=== PATIENT | male | born 2000 | race American Indian/Alaskan Native ===

== ENCOUNTER 2021-01-24 07:22 | Emergency (ER) | payer SELFPAY ==
[2021-01-24] MEDS ORDERED: ACETAMINOPHEN 325 MG TAB PO ONE (08:02)
[2021-01-24] MEDS ORDERED: ACETAMINOPHEN 325 MG TAB ONE (08:04)
--- NOTE | 2021-01-24 10:49 | Emergency Department Report ---
ED General Adult HPI - General Chief complaint: Upper Respiratory Infection Stated complaint: CHEST PAIN TROUBLE BREATHING COUGH Time Seen by Provider: 01/24/21 10:25 Source: patient Mode of arrival: Ambulatory Limitations: No Limitations - History of Present Illness Initial comments: 20-year-old male complaining of coughing with streaks of blood in his mucus, left ear pain and right upper abdominal pain x1 week. He states that he had a Covid test done on the 01/22 at outside facility that was negative. He has been around his 5-year-old brother who has upper respiratory-like symptoms. He denies any fever however on arrival his temperature is 102.7. He does report nausea and some episodes of vomiting. He denies any urinary symptoms no shortne ss of breath but he reports chest pain with deep breaths.. He is in no acute distress denies any chronic medical conditions -: week(s) (1) Radiation: abdomen Severity scale (0 -10): 7 Consistency: intermittent Improves with: none Worsens with: movement, other (Cough) Associated Symptoms: cough, nausea/vomiting. denies: headaches Treatments Prior to Arrival: none - Related Data Previous Rx's Medication Instructions Recorded Last Taken Type Albuterol Sulfate [Proair 90 mcg IH Q4H PRN #1 aer.pow.ba 01/24/21 Unknown Rx Respiclick] levoFLOXacin [Levaquin] 750 mg PO QDAY #9 tablet 01/24/21 Unknown Rx methylPREDNISolone [Medrol 4MG 4 mg PO DAILY #1 pack 01/24/21 Unknown Rx DOSEPAK (21 tabs)] Allergies Allergy/AdvReac Type Severity Reaction Status Date / Time Penicillins Allergy Itching Verified 01/24/21 07:57 ED Review of Systems ROS: Stated complaint: CHEST PAIN TROUBLE BREATHING COUGH Other details as noted in HPI Comment: All other systems reviewed and negative Constitutional: malaise ENT: ear pain Respiratory: cough Cardiovascular: chest pain (With inspiration) Gastrointestinal: abdominal pain, nausea, vomiting Musculoskeletal: back pain (Right back pain) Neurological: denies: headache, weakness, abnormal gait ED Past Medical Hx - Past Medical History Previous Medical History?: Yes Additional medical history: LEFT SHOULDER PAIN - Surgical History Past Surgical History?: No - Medications Home Medications: Home Medications Medication Instructions Recorded Confirmed Last Taken Type Albuterol Sulfate [Proair 90 mcg IH Q4H PRN #1 aer.pow.ba 01/24/21 Unknown Rx Respiclick] levoFLOXacin [Levaquin] 750 mg PO QDAY #9 tablet 01/24/21 Unknown Rx methylPREDNISolone [Medrol 4MG 4 mg PO DAILY #1 pack 01/24/21 Unknown Rx DOSEPAK (21 tabs)] ED Physical Exam - General Limitations: No Limitations General appearance: alert, in no apparent distress - Head Head exam: Present: atraumatic - Eye Eye exam: Present: normal appearance. Absent: conjunctival injection - ENT ENT exam: Present: normal orophraynx, mucous membranes moist, other (Left TM injected) - Neck Neck exam: Present: normal inspection, full ROM. Absent: lymphadenopathy - Respiratory Respiratory exam: Present: wheezes (Few scattered wheezes), rales (Right lower base) - Cardiovascular Cardiovascular Exam: Present: tachycardia, normal heart sounds - GI/Abdominal GI/Abdominal exam: Present: soft, tenderness (Right upper abdomen and right lower quadrant tenderness), normal bowel sounds. Absent: distended, rebound, rigid - Extremities Exam Extremities exam: Present: normal inspection, normal capillary refill - Back Exam Back exam: Present: normal inspection - Neurological Exam Neurological exam: Present: alert, oriented X3 - Psychiatric Psychiatric exam: Present: normal affect - Skin Skin exam: Present: warm, dry, intact, normal color ED Course Vital Signs 01/24/21 01/24/21 01/24/21 08:01 14:39 15:01 Temperature 102.1 F H 99.8 F H Pulse Rate 107 H 98 H Respiratory 20 18 Rate Respiratory 20 Rate [Anterior Bilateral Throughout] Blood Pressure 118/79 Blood Pressure 121/76 [Right] O2 Sat by Pulse 96 98 Oximetry - Reevaluation(s) Reevaluation #1: 01/24/21 12:47 At patient best bedside to reevaluate and discuss findings. Patient states that his right lower abdominal pain has worsened since he has been here. He denies any chest pains or shortness of breath I discussed findings with patient but his concern is now more related to the abdominal pain. Plan of care discussed with Dr. Bassam Figueroa. 01/24/21 13:56 Patient in no acute distress I discussed all findings with him he is aware that he has right lower lobe pneumonia no signs of acute appendicitis he will be discharged home with Levaquin Medrol Dosepak and albuterol inhaler. ED Medical Decision Making - Lab Data Result diagrams: 01/24/21 10:55 01/24/21 10:55 Lab Results 01/24/21 01/24/21 01/24/21 Range/Units 10:55 10:55 10:55 WBC 17.3 H (4.5-11.0) K/mm3 RBC 4.93 (3.65-5.03) M/mm3 Hgb 15.1 (11.8-15.2) gm/dl Hct 44.7 (35.5-45.6) % MCV 91 (84-94) fl MCH 31 (28-32) pg MCHC 34 (32-34) % RDW 13.6 (13.2-15.2) % Plt Count 301 (140-440) K/mm3 Add Manual Diff Complete Total Counted 100 Seg Neuts % (Manual) 88.0 H (40.0-70.0) % Lymphocytes % (Manual) 7.0 L (13.4-35.0) % Monocytes % (Manual) 4.0 (0.0-7.3) % Basophils % (Manual) 1.0 (0.0-1.8) % Nucleated RBC % Not Reportable Seg Neutrophils # Man 15.2 H (1.8-7.7) K/mm3 Band Neutrophils # 0.0 K/mm3 Lymphocytes # (Manual) 1.2 (1.2-5.4) K/mm3 Abs React Lymphs (Man) 0.0 K/mm3 Monocytes # (Manual) 0.7 (0.0-0.8) K/mm3 Eosinophils # (Manual) 0.0 (0.0-0.4) K/mm3 Basophils # (Manual) 0.2 H (0.0-0.1) K/mm3 Metamyelocytes # 0.0 K/mm3 Myelocytes # 0.0 K/mm3 Promyelocytes # 0.0 K/mm3 Blast Cells # 0.0 K/mm3 WBC Morphology Not Reportable Hypersegmented Neuts Not Reportable Hyposegmented Neuts Not Reportable Hypogranular Neuts Not Reportable Smudge Cells Not Reportable Toxic Granulation Not Reportable Toxic Vacuolation Not Reportable Dohle Bodies Not Reportable Pelger-Huet Anomaly Not Reportable Brigido Rods Not Reportable Platelet Estimate Cons Clumped Platelets Not Reportable Plt Clumps, EDTA Not Reportable Large Platelets Rare Giant Platelets Not Reportable Platelet Satelliting Not Reportable Plt Morphology Comment Not Reportable RBC Morphology Normal Dimorphic RBCs Not Reportable Polychromasia Not Reportable Hypochromasia Not Reportable Poikilocytosis Not Reportable Anisocytosis Not Reportable Microcytosis Not Reportable Macrocytosis Not Reportable Spherocytes Not Reportable Pappenheimer Bodies Not Reportable Sickle Cells Not Reportable Target Cells Not Reportable Tear Drop Cells Not Reportable Ovalocytes Not Reportable Helmet Cells Not Reportable [place] Bodies Not Reportable [place] Rings Not Reportable Marina Cells Not Reportable Bite Cells Not Reportable Crenated Cell Not Reportable Elliptocytes Not Reportable Acanthocytes (Spur) Not Reportable Rouleaux Not Reportable Hemoglobin C Crystals Not Reportable Schistocytes Not Reportable Malaria parasites Not Reportable Will Bodies Not Reportable Hem Pathologist Commnt No Sodium 132 L (137-145) mmol/L Potassium 4.4 (3.6-5.0) mmol/L Chloride 90.2 L (98-107) mmol/L Carbon Dioxide 28 (22-30) mmol/L Anion Gap 18 mmol/L BUN 14 (9-20) mg/dL Creatinine 0.8 (0.8-1.3) mg/dL Estimated GFR > 60 ml/min BUN/Creatinine Ratio 18 % Glucose 102 H (75-100) mg/dL Lactic Acid (0.7-2.0) mmol/L Calcium 9.7 (8.4-10.2) mg/dL Total Bilirubin 1.30 H (0.1-1.2) mg/dL AST 55 H (5-40) units/L ALT 57 H (7-56) units/L Alkaline Phosphatase 88 (35-129) units/L Total Protein 8.0 (6.3-8.2) g/dL Albumin 4.0 (3.9-5) g/dL Albumin/Globulin Ratio 1.0 % Lipase 15 (13-60) units/L 01/24/ Range/Units 13:33 WBC (4.5-11.0) K/mm3 RBC (3.65-5.03) M/mm3 Hgb (11.8-15.2) gm/dl Hct (35.5-45.6) % MCV (84-94) fl MCH (28-32) pg MCHC (32-34) % RDW (13.2-15.2) % Plt Count (140-440) K/mm3 Add Manual Diff Total Counted Seg Neuts % (Manual) (40.0-70.0) % Lymphocytes % (Manual) (13.4-35.0) % Monocytes % (Manual) (0.0-7.3) % Basophils % (Manual) (0.0-1.8) % Nucleated RBC % Seg Neutrophils # Man (1.8-7.7) K/mm3 Band Neutrophils # K/mm3 Lymphocytes # (Manual) (1.2-5.4) K/mm3 Abs React Lymphs (Man) K/mm3 Monocytes # (Manual) (0.0-0.8) K/mm3 Eosinophils # (Manual) (0.0-0.4) K/mm3 Basophils # (Manual) (0.0-0.1) K/mm3 Metamyelocytes # K/mm3 Myelocytes # K/mm3 Promyelocytes # K/mm3 Blast Cells # K/mm3 WBC Morphology Hypersegmented Neuts Hyposegmented Neuts Hypogranular Neuts Smudge Cells Toxic Granulation Toxic Vacuolation Dohle Bodies Pelger-Huet Anomaly Brigido Rods Platelet Estimate Clumped Platelets Plt Clumps, EDTA Large Platelets Giant Platelets Platelet Satelliting Plt Morphology Comment RBC Morphology Dimorphic RBCs Polychromasia Hypochromasia Poikilocytosis Anisocytosis Microcytosis Macrocytosis Spherocytes Pappenheimer Bodies Sickle Cells Target Cells Tear Drop Cells Ovalocytes Helmet Cells [place] Bodies [place] Rings Marina Cells Bite Cells Crenated Cell Elliptocytes Acanthocytes (Spur) Rouleaux Hemoglobin C Crystals Schistocytes Malaria parasites Will Bodies Hem Pathologist Commnt Sodium (137-145) mmol/L Potassium (3.6-5.0) mmol/L Chloride (98-107) mmol/L Carbon Dioxide (22-30) mmol/L Anion Gap mmol/L BUN (9-20) mg/dL Creatinine (0.8-1.3) mg/dL Estimated GFR ml/min BUN/Creatinine Ratio % Glucose (75-100) mg/dL Lactic Acid 0.90 (0.7-2.0) mmol/L Calcium (8.4-10.2) mg/dL Total Bilirubin (0.1-1.2) mg/dL AST (5-40) units/L ALT (7-56) units/L Alkaline Phosphatase (35-129) units/L Total Protein (6.3-8.2) g/dL Albumin (3.9-5) g/dL Albumin/Globulin Ratio % Lipase (13-60) units/L - EKG Data When compared to previous EKG there are: previous EKG unavailable Interpretation: normal EKG - Radiology Data Radiology results: report reviewed CHEST 2 VIEWS 1104 INDICATION / CLINICAL INFORMATION: COUGH FEVER COMPARISON: None available. FINDINGS: SUPPORT DEVICES: None. HEART / MEDIASTINUM: No significant abnormality. LUNGS / PLEURA: No significant pulmonary or pleural abnormality. No pneumothorax. ADDITIONAL FINDINGS: No significant additional findings. IMPRESSION: No significant acute abnormality CT ABDOMEN AND PELVIS WITHOUT CONTRAST HISTORY: RLQ ABD PAIN FEVER 102.7. COMPARISON: None. TECHNIQUE: CT images of the abdomen and pelvis were obtained without administration of intravenous contrast. All CT scans at this location are performed using CT dose reduction for ALARA by means of automated exposure control. FINDINGS: Lungs/bones: There is groundglass opacity and marked density within the posterior aspect of the right lower lung medially. Surrounding interstitial prominence is also noted. Abdomen/pelvis: Within limits of a noncontrast exam the liver, spleen, adrenal glands, pancreas, gallbladder and upper GI tract appear normal. No definite renal stones are seen. The appendix and small amount of gas proximally. The more mid and distal appendix does appear to be prominent measuring 7 mm. No significant surrounding inflammatory change is definitely seen. Fines best seen on axial image 154. No acute bone findings - Medical Decision Making I discussed all findings and plans with Dr. Bassam Figueroa and he agrees. This is a 20-year-old male with a 1 week complaint of cough right back right upper and right lower abdominal pain. Patient was not febrile at home but upon arrival to the emergency room his temperature was 102. On exam he had few scattered wheezes in the right lower base Rales chest x-ray had no acute findings however CT of the abdomen and pelvis because of patient's persistent complaint of right lower quadrant pain revealed right lower lobe pneumonia. Oxygen saturation remains between 96 to 98% on room air patient is in no acute distress. Patient reported a negative Covid test on 722. He plans to have one repeated at outpatient facility. Plan is to discharge patient home with Levaquin Medrol Dosepak and albuterol inhaler.. Patient is in no distress he is now afebrile his temperature is 99.8 HR 98 O2 SAT 98 Resp easy and unlagored Critical Care Time: No Critical care attestation.: If time is entered above; I have spent that time in minutes in the direct care of this critically ill patient, excluding procedure time. ED Disposition Clinical Impression: Right lower lobe pneumonia Qualifiers: Pneumonia type: due to unspecified organism Qualified Code(s): J18.9 - Pneumonia, unspecified organism Left otitis media Qualifiers: Otitis media type: other nonsuppurative Chronicity: acute Recurrence: non- recurrent Qualified Code(s): H65.192 - Other acute nonsuppurative otitis media, left ear Disposition: TO HOME OR SELFCARE Is pt being admited?: No Does the pt Need Aspirin: No Condition: Stable Instructions: Otitis Media, Adult, [id number], Community-Acquired Pneumonia, Adult, [id number], Bacterial Pneumonia (ED) Additional Instructions: Rest keep yourself well-hydrated. Follow-up with your primary care doctor or Dr. Barnett .in 3 to 5 days. Please consider repeating PCR Covid test Take all medication as prescribed. Return to the emergency room for any difficulty breathing worsening chest pain and shortness of breath. Take Tylenol or ibuprofen for pain and for your fever every 4-6 hours per package insert. Prescriptions: levoFLOXacin [Levaquin] 750 mg PO QDAY #9 tablet methylPREDNISolone [Medrol 4MG DOSEPAK (21 tabs)] 4 mg PO DAILY #1 pack Albuterol Sulfate [Proair Respiclick] 90 mcg IH Q4H PRN #1 aer.pow.ba PRN Reason: cough and wheezing Referrals: PRIMARY CAREMD [Primary Care Provider] - 3-5 Days ARLEY BARNETT MD [Staff Physician] - 3-5 Days Forms: Work/School Release Form(ED) Time of Disposition: 14:07
[2021-01-24 11:20] LABS: Hematocrit 44.7 % (35.5-45.6); Hemoglobin 15.1 gm/dl (11.8-15.2); Mean Corpuscular HGB Conc 34 % (32-34); Mean Corpuscular Volume 91 fl (84-94); Platelet Count 301 K/mm3 (140-440); Red Blood Count 4.93 M/mm3 (3.65-5.03); Red Cell Distribution Width 13.6 % (13.2-15.2)
[2021-01-24] MEDS ORDERED: ALBUTEROL 2.5 MG/3 ML NEBU IH ONE ×2 (11:21→14:09)
--- NOTE | 2021-01-24 11:24 | XRay Report ---
CHEST 2 VIEWS 1104 INDICATION / CLINICAL INFORMATION: COUGH FEVER COMPARISON: None available. FINDINGS: SUPPORT DEVICES: None. HEART / MEDIASTINUM: No significant abnormality. LUNGS / PLEURA: No significant pulmonary or pleural abnormality. No pneumothorax. ADDITIONAL FINDINGS: No significant additional findings. IMPRESSION: No significant acute abnormality Signer Name: Kahlil Hanson MD Signed: 01/24/2021 11:19 AM Workstation Name: [id number]
[2021-01-24 11:28] LABS: Alanine Aminotransferase 57 units/L (7-56); BUN/Creatinine Ratio 18; Blood Urea Nitrogen 14 mg/dL (9-20); Calcium 9.7 mg/dL (8.4-10.2); Hemolysis Index 7
[2021-01-24] MEDS ORDERED: SODIUM CHLORIDE 0.9% 1000 ML 1,000 ML IV ONE (12:31)
[2021-01-24] MEDS ORDERED: MORPHINE 2 MG/1 ML INJ IV ONE (12:49)
[2021-01-24 13:10] LABS: Total Cells Counted 100
[2021-01-24 13:16] LABS: Large Platelets Rare; RBC Morphology Normal
[2021-01-24 13:17] LABS: Platelet Estimate Cons
--- NOTE | 2021-01-24 13:33 | Cat Scan Report ---
CT ABDOMEN AND PELVIS WITHOUT CONTRAST HISTORY: RLQ ABD PAIN FEVER 102.7. COMPARISON: None. TECHNIQUE: CT images of the abdomen and pelvis were obtained without administration of intravenous co ntrast. All CT scans at this location are performed using CT dose reduction for ALARA by means of au tomated exposure control. FINDINGS: Lungs/bones: There is groundglass opacity and marked density within the posterior aspect of the righ t lower lung medially. Surrounding interstitial prominence is also noted. Abdomen/pelvis: Within limits of a noncontrast exam the liver, spleen, adrenal glands, pancreas, gal lbladder and upper GI tract appear normal. No definite renal stones are seen. The appendix and small amount of gas proximally. The more mid and distal appendix does appear to be p rominent measuring 7 mm. No significant surrounding inflammatory change is definitely seen. Fines bes t seen on axial image 154. No acute bone findings IMPRESSION: 1. Right lower lung opacity/density with groundglass pattern and dense infiltrate. Findings could rep resent pneumonia, bacterial, atypical, nonspecific. Clinical correlation and follow-up after treatmen t. 2. Appendix is slightly prominent measuring up to 7 to 8 mm in size. No significant surrounding infla mmatory change. There is a small amount of gas which is normal proximally. No evidence for perforatio n or free fluid. Clinical correlation with laboratory data and examination. Signer Name: Williams Dorsey MD Signed: 01/24/2021 1:28 PM Workstation Name: [id number]
[2021-01-24] MEDS ORDERED: levoFLOXacin 750 MG TAB PO ONE (14:06)
[2021-01-24 15:02] VITALS: BP 121/76
--- NOTE | 2021-01-25 14:29 | Electrocardiograph Report ---
[facility] Test Date: 2021-01-24 Test Time: 08:11:51 Pat Name: MARIA DEL CARMEN BONNER Department: Room: Gender: M Applications Support Analyst: BRO : [id number] Requested By: MATTY BARNEY Order Number: [id number] Reading MD: Martha Clark Measurements Intervals Christopher Rate: 97 P: 61 [place]: 149 QRS: 55 QRSD: 77 T: 16 QT: 320 QTc: 408 Interpretive Statements Sinus rhythm No previous ECG available for comparison Electronically Signed On 01-25-2021 14:29:02 EDT by Martha Clark
== END 2021-01-24 15:06 | disposition home or self-care (01) ==
LOC: ED 07:22
DX: J18.9 Pneumonia, unspecified organism (principal); H66.92 Otitis media, unspecified, left ear; R10.11 Right upper quadrant pain; R10.31 Right lower quadrant pain; Z98.890 Other specified postprocedural states; Z88.0 Allergy status to penicillin; Z79.899 Other long term (current) drug therapy
CPT/HCPCS: 36415; 71046; 74176; 80053; 82140; 83690; 85007; 85025; 93005; 94640; 96361; 96374; 99284; J2270; J7030; 94644